=== PATIENT | female | born 1995 | race Caucasian/White ===

== ENCOUNTER 2025-03-18 08:26 | Outpatient (REF) | payer MEDICAID, SELFPAY ==
--- OUTSIDE RECORDS SUMMARY | 2025-03-18 08:32 | XMS_ITS | Encounter Summary ---
Author Organization [employer] [facility] Address [address], [place] [address] Care Team Providers Care Lye Bath Operator Name Role Phone Missy Arthur MD Primary Care Pro vider Reason for Visit * Reason Onset Date Comments New Patient 07/16/2023 Encounter Details Date Type Department Care Team ([facility] Contact Info) Description 07/16/2023 Telephone [facility] MEDICINE [address] [place] [address] [phone] Rodney Haro MD [address] [place] [address] [phone] New Patient Social History Tobacco Use Types Packs/Day Years Used Date Smoking Tobacco: Never Passive Smoke Exposure: Never Smokeless Tobacco: Never Comments Unknown Sex and Gender Information Value Date Recorded Sex Assigned at Female 09/23/2022 10:30 AM EDT Legal Sex Female 10:30 AM EDT Gender Identity Female 09/23/2022 10:30 AM EDT Sexual Orientation Straight 09/23/2022 10 :30 AM EDT documented as of this encounter Plan of Treatment Upcoming Encounters Date Type Department Care Team (Late st Contact Info) Description 05/04/2025 3:00 PM EDT Office Visit [facility] MEDICINE [address] [place] [address] [phone] Missy Arthur MD [address] [place] [address] [phone] documented as of this encounter Visit Diagnoses Not on filedocumented in this encounter Care Teams Lye Bath Operator Relationship Specialty Start Date End Date Missy Arthur MD [address] [place] [phone] PCP - General Internal Medicine 11/14/23 documented as of this encounter
--- OUTSIDE RECORDS SUMMARY | 2025-03-18 08:32 | XMS_ITS | Encounter Summary ---
Author Organization [employer] [facility] Address [address] [place] [address] 7 [place] [address] Care Team Providers Care Occupational Health And Safety Manager Name Role Phone Name, Baldomero RICKS Primary Care Provider [phone] Missy Arthur MD Primary Care Pro vider Encounter Details Date Type Department Care Team (Latest Contact Info) Description 12/07/2018 Abstract [facility] CONVERSIONS Dental, Provider, DDS Social History Tobacco Use Types Packs/Day Years Used Date Smoking Tobacco: Never Assessed Comments Unknown Sex and Gender Information Value Date Recorded Sex Assigned at Female 09/23/2022 10:30 AM EDT Legal Sex Female 10:30 AM EDT Gender Identity Female 09/23/2022 10:30 AM EDT Sexual Orientation Straight 09/23/2022 10 :30 AM EDT documented as of this encounter Plan of Treatment Upcoming Encounters Date Type Department Care Team ( Contact Info) Description 05/04/2025 3:00 PM EDT Office Visit [facility] MEDICINE [address] [place] [address] Missy Arthur MD [address] [place] [phone] documented as of this encounter Visit Diagnoses Not on filedocumented in this encounter Care Teams Occupational Health And Safety Manager Relationship Specialty Start Date End Date Name, MD Baldomero [address] [place] [address] PCP - General Family Medicine 10/09/17 07/15/23 Missy Arthur MD [address] [place] [address] PCP - General Internal Medicine 11/14/23 documented as of this encounter
--- OUTSIDE RECORDS SUMMARY | 2025-03-18 08:32 | XMS_ITS | Encounter Summary ---
Author Organization [employer] [facility] Address [address] [place] [address] 7 [place] [address] Care Team Providers Care Port Warden Name Role Phone Name, Baldomero RICKS Primary Care Provider [phone] Missy Arthur MD Primary Care Pro vider Encounter Details Date Type Department Care Team (Latest Contact Info) Description 08/23/2022 Abstract [facility] CONVERSIONS Dental, Provider, DDS Social [...] Description 05/04/2025 3:00 PM EDT Office Visit [facility] MEDICINE [address] [place], [place] [phone] Missy Arthur MD [address] [place] [address] documented as of this encounter Visit Diagnoses Not on filedocumented in this encounter Care Teams Port Warden Relationship Specialty Start Date End Date Name, MD Baldomero [address] [place] [address] PCP - General Family Medicine 10/09/17 07/15/23 Missy Arthur MD [address] [place] [phone] PCP - General Internal Medicine 11/14/23 documented as of this encounter
--- OUTSIDE RECORDS SUMMARY | 2025-03-18 08:32 | XMS_ITS | Clinical Summary ---
Author Organization [employer] [facility] Address [address] 7t [place] [address] Care Team Providers Care Channel Manager Name Role Phone Missy Arthur MD Primary Care Pro vider Allergies No known active allergies Medications Sodium Fluoride (PreviDent 5000 Plus) 1.1 % cream Apply 1 mg to teeth 3 times daily. 1 g 3 03/12/2024 Active Vit-Fe Fumarate-FA ( Vitamins) 28-0.8 MG tabletIndication s:Family Planning Take 1 tablet by mouth Once per day. 90 tablet 3 06/23/2024 Active Active Problems Problem Noted Date Diagnosed Date Health care maintenance 11/15/2023 Obesity 10/24/2017 10/31/2023 Encounters Date Type Department Care Team Description 02/04/2025 Population Health Risk Score [facility] (C3) Department [address] [phone] Provider, Population Health Generic 01/31/2025 Telephone [facility] MEDICINE [address] [place], [place] [phone] Missy Arthur MD April recall from Last 3 Months Immunizations Name Administration Dates Next Due Influenza injectable quadriv alent preservative free 09/17/2023 Influenza, seasonal, injecta ble, preservative free 09/08/2024 Pfizer Covid-19 Vaccine 12+ 09/08/2024 RSV Bivalent 11/25/2023 Tdap 10/14/2023,03/14/2020,05/26/2018 Social History Tobacco Use Types Packs/Day Years Used Date Smoking Tobacco: Never Passive Smoke Exposure: Never Smokeless Tobacco: Never Tobacco Cessation:Counseling Given: Not Answered Alcohol Use Standard Drinks/Week Comments Not Currently 0 (1 standard drink = 0.6 oz pur e alcohol) Depression Answer Date Recorded Patient Health Questionnaire-9 Score 3 11/14/2023 Patient Health Questionnaire-9 Score 3 11/14/2023 Last PHQ-9: Questionnaire Data Not on file 1 01/15/2023 Housing Stability Answer Date Recorded What is your housing situation today? I have [employer] 09/09/[address] you li ve. Do you have problems with any of the following? None of the above 09/09/2023 Food Insecurity Answer Date Recorded Within the past 12 months, y ou worried that your food would run out before you got money to buy more: Never True 09/09/2023 Within the past 12 months,th e food you bought just didn't last and you didn't have enough money to get more: Never True Transportation Answer Date Recorded In the past 12 months, has l ack of transportation kept you from medical appts, meetings, work or from getting things needed for daily living? No 09/09/2023 Utilities Answer Date Recorded In the past 12 months, has t he electric, gas, oil or water company threatened to shut off services in your home? No 09/09/2023 Depression Answer Date Recorded Patient Health Questionnaire-2 Score 0 11/14/2023 Comments Unknown Sex and Gender Information Value Date Recorded Sex Assigned at Female 09/23/2022 10:30 AM EDT Legal Sex Female 10:30 AM EDT Gender Identity Female 09/23/2022 10:30 AM EDT Sexual Orientation Straight 09/23/2022 10 :30 AM EDT Last Filed Vital Signs Vital Sign Reading Time Taken Comments Blood Pressure 119/70 09/08/2024 3:22 PM EDT Pulse 70 09/08/2024 3:22 PM EDT Temperature 36.7 ??C (98 ??F) 09/08/2024 3:22 PM EDT Respiratory Rate 20 09/08/2024 3:22 PM EDT Oxygen Saturation 98% 09/08/2024 3:22 PM EDT Inhaled Oxygen Concentration - - Weight 96 kg (211 lb 9.6 oz) 10/18/2024 10:51 AM EST Height 160 cm (5' 3 ) 10/18/2024 10:51 AM EST Body Mass Index 37.48 10/18/2024 10:51 AM EST Plan of Treatment Upcoming Encounters Date Type Department Care Team (Late st Contact Info) Description 05/04/2025 3:00 PM EDT Office Visit [facility] MEDICINE [address] [place] [address] Missy Arthur MD [address] [place], [place] [phone] Health Maintenance Due Date Last Done Comments HIV Screening 1997 Lipid Panel 1997 Alcohol/Substance Use Screening 2009 Family Planning (PISQ) 2012 Hepatitis C Screening 2015 Hepatitis B Vaccines (1 of 3 - 19+ 3-dose series) 2016 Pap Smear 2018 Dental Prophylaxis 08/23/2024 02/20/2024 Dental Oral Exam 09/12/2024 03/12/2024 Depression Screening 11/14/2024 11/14/2023, 11/14/2023 SDOH Screening 12/26/2024 12/26/2023 Dental X-Ray: Bitewings 02/20/2025 02/20/2024 Tobacco Screening 09/08/2025 09/08/2024 Dental X-Ray: Full Mouth 02/20/2027 02/20/2024 DTaP/Tdap/Td Vaccines (4 - T d or Tdap) 10/14/2033 10/14/2023, 03/14/2020, 05/26/2018 Zoster Vaccines (1 of 2) 2047 RSV Patients and Patients Aged 60 years or older (1 - 1-dose 75+ series) 2072 11/25/2023 COVID-19 Vaccine Completed 09/08/2024, 07/19/2021, 06/07/2021 Influenza Vaccine Completed 09/08/2024, 09/17/2023 HIB Vaccines Aged Out No longer eligi ble based on patient's age to complete this topic HPV Vaccines Aged Out No longer eligi ble based on patient's age to complete this topic Hepatitis A Vaccines Aged Out No long er eligible based on patient's age to complete this topic IPV Vaccines Aged Out No longer eligi ble based on patient's age to complete this topic Meningococcal Vaccine Aged Out No jl alisha eligible based on patient's age to complete this topic Pneumococcal Vaccine: Pediatrics (0 to 5 Years) and At-Risk Patients (6 to 49) Years) Aged Out No longer eligible b ased on patient's age to complete this topic RSV under 20 months Aged Out No longe r eligible based on patient's age to complete this topic Rotavirus Vaccines Aged Out No longer eligible based on patient's age to complete this topic Procedures Procedure Name Priority Date/Time Associated Diagnosis Comments PERIODIC ORAL EVALUATION - ESTABLISHED PATIENT Routine 03/12/2024 8:00 AM EDT Encounter for dental examination Dental caries PROPHYLAXIS - ADULT Routine 02/20/2024 1 :00 PM EDT Dental calculus INTRAORAL - COMPLETE SERIES OF RADIOGRAPHIC IMAGES Routine 02/20/2024 1:00 PM EDT Dental calculus from Last 3 Months or Most Recently Relevant to Health Maintenance Insurance [facility] C3 DENTAL-[facility] MEDICAID STAND ADULT Care Teams Channel Manager Relationship Specialty Start Date End Date Missy Arthur MD [address] [place] [address] [phone] PCP - General Internal Medicine 11/14/23
[2025-03-18 11:37] LABS: Hematocrit 39.8 % (37.0-47.0); Hemoglobin 13.4 g/dl (12.0-16.0); Mean Corpuscular HGB Conc 33.7 g/dl (31.0-35.0); Mean Corpuscular Hemoglobin 29.3 pg (27.0-33.0); Mean Corpuscular Volume 87.1 fL (80.0-98.0); Mean Platelet Volume 12.4 fL (9.4-12.3); Platelet Count 219 X10*3/uL (160-400); Red Blood Count 4.57 X10*6/uL (4.20-5.50); White Blood Count 6.4 X10*3/uL (4.8-10.8)
[2025-03-18 11:42] LABS: Estimated Average Glucose 100 mg/dL; Hemoglobin A1C 114.1758 umol/L; Hemoglobin A1c % 5.1 % (<6.0); Total Hemoglobin (HGBA1C) 3555.4329 umol/L
[2025-03-18 12:17] LABS: Alanine Aminotransferase 24 U/L (0-31); Albumin Level 4.2 g/dL (3.5-5.0); Alkaline Phosphatase 119 U/L (39-117); Anion Gap 8 (12-20); Aspartate Amino Transferase 21 U/L (5-31); Bilirubin Total 0.4 mg/dL (0.0-1.0); Blood Urea Nitrogen 14 mg/dL (9-16); Calcium 8.9 mg/dL (8.4-10.2); Carbon Dioxide 28 mmol/L (22-29); Chloride 108 mmol/L (96-108); Cholesterol 141 mg/dL (<200); Estimated Glomerular Filt Rate > 60; Glucose Random 87 mg/dL (60-115); HDL Cholesterol 44 mg/dL (>40); LDL Cholesterol Calculated 80 mg/dL (<100); Potassium 3.6 mmol/L (3.3-5.1); Sodium 140 mmol/L (135-145); Total Protein 7.1 g/dL (6.5-8.0); Triglycerides 89 mg/dL (<150)
[2025-03-18 12:19] LABS: Syphilis Screen Nonreactive (Nonreactive)
[2025-03-18 12:21] LABS: HBS Num1 > 1000.00 mIU/mL (0-7.99); HBc Num1 0.14 S/CO (0.00-0.79); HIV AB/AG Nonreactive (Nonreactive); HIV Num 1 0.06 S/CO (0.00-0.99); Hepatitis B Core Antibody Nonreactive (Nonreactive); Hepatitis B Surface Antigen Negative (Negative); ~HepC Num1 0.12 S/CO (0.00-0.79); ~Hepatitis B Surface Antibody REACTIVE (Nonreactive); ~Hepatitis C Antibody Nonreactive (Nonreactive)
[2025-03-18 12:24] LABS: Vitamin D 25-OH Total 24.3 ng/mL (>30)
[2025-03-18 12:59] LABS: Free T4 (Free Thyroxine) 0.74 ng/dL (0.71-1.85)
[2025-03-18 13:07] LABS: CT PCR NOT DETECTED (Not Detect.); NG PCR NOT DETECTED (Not Detect.)
== END 2025-03-18 08:27 | disposition home or self-care (01) ==
LOC: HO.HHCL 08:26
PROVIDERS: Visit Provider Student in an Organized Health Care Education/Training Program
DX: Z00.00 Encounter for general adult medical examination without abnormal findings (principal); Z11.59 Encounter for screening for other viral diseases; Z11.3 Encounter for screening for infections with a predominantly sexual mode of transmission
CPT/HCPCS: 80053; 80061; 82306; 83036; 84439; 84443; 85027; 86704; 86706; 86780; 86803; 87340; 87389; 87491; 87591

== ENCOUNTER 2025-06-22 09:44 | Outpatient (REF) | payer OTHER, SELFPAY ==
--- OUTSIDE RECORDS SUMMARY | 2025-06-22 10:20 | XMS_ITS | Encounter Summary ---
Author Organization [facility] Address [address] [place] [address] [address] [place] [phone] Phone Care Team Providers Care Paper Goods Machine Set Up Operator Name Role Phone Dawn Byrne MD Primary Care Provider Pcp, Unknown Primary Care Provider Unavailabl e Pcp, Unknown Primary Care Provider Unavailabl e Pcp, Unknown Primary Care Provider Unavailabl e [facility], [facility] [[email or web address] MD Primary Care Provider Encounter Details Date Type Department Care Team (Late st Contact Info) Description 02/21/2020 Telephone [facility] [address] [place] [address] Lou Townsend [place] [address] [place] [address] 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 Not on file Not on file documented as of this encounter Plan of Treatment Not on file documented as of this encounter Visit Diagnoses Not on filedocumented in this encounter Additional Health Concerns Infection Onset Date Last Indicated Resolved Time CoV-Risk 05/13/2022 05/13/2022 05/24/2022 1:22 AM EDT documented as of this encounter Care Teams Paper Goods Machine Set Up Operator Relationship Specialty Start Date End Date Dawn Byrne MD [address] [place] [address], [address] [place] [address] [email or web address] PCP - General Internal Medicine 10/17/19 05/06/22 Pcp, Unknown PCP - General 05/07/22 05/12/22 Pcp, Unknown PCP - General 05/13/22 09/07/23 Pcp, Unknown PCP - General 09/08/23 12[facility]09[facility]23 [facility] [address] [place] [phone] PCP - General 12/10/23 documented as of this encounter Additional Source Comments The information contained in this document represents components of the legal health record. It is not the complete legal health record.[facility]
--- OUTSIDE RECORDS SUMMARY | 2025-06-22 10:20 | XMS_ITS | Encounter Summary ---
Author Organization [employer] Address [address] [place] [address] [address] [place] [address] Care Team Providers Care Ladle Patcher Name Role Phone Missy Arthur MD Primary Care Pro vider Reason for Visit * Reason Onset Date Comments New Patient 07/16/2023 Encounter Details Date Type Department Care Team ([facility] Contact Info) Description 07/16/2023 Telephone [facility] MEDICINE [address] [place] [phone] Rodney Haro MD [address] [place] [phone] New Patient Social History Tobacco Use Types [...] Encounters Date Type Department Care Team (Late Contact Info) Description 09/27/2025 3:00 PM EST Office Visit [facility] ADULT DENTAL [address] [place] [address] Yudith Booth documented as of this encounter Visit Diagnoses Not on filedocumented in this encounter Care Teams Ladle Patcher Relationship Specialty Start Date End Date Missy Arthur MD [address] [place] [phone] PCP - General Internal Medicine 11/14/23 documented as of this encounter
[2025-06-22 11:59] LABS: Alanine Aminotransferase 30 U/L (0-31); Albumin Level 4.4 g/dL (3.5-5.0); Alkaline Phosphatase 84 U/L (39-117); Anion Gap 8 (12-20); Aspartate Amino Transferase 23 U/L (5-31); Blood Urea Nitrogen 9 mg/dL (9-16); Calcium 8.3 mg/dL (8.4-10.2); Carbon Dioxide 28 mmol/L (22-29); Chloride 107 mmol/L (96-108); Estimated Glomerular Filt Rate > 60; Potassium 3.8 mmol/L (3.3-5.1); Sodium 139 mmol/L (135-145); Total Protein 7.0 g/dL (6.5-8.0)
[2025-06-22 12:23] LABS: Free T4 (Free Thyroxine) 0.76 ng/dL (0.71-1.85); Thyroid Stimulating Hormone 3.29 uIU/mL (0.32-4.0)
== END 2025-06-22 09:45 | disposition home or self-care (01) ==
LOC: HO.HHCL 09:44
PROVIDERS: PCP Student in an Organized Health Care Education/Training Program; Visit Provider Student in an Organized Health Care Education/Training Program
DX: R94.6 Abnormal results of thyroid function studies (principal)
CPT/HCPCS: 36415; 80053; 84439; 84443